=== PATIENT | male | born 2000 | race African-American/Black ===

== ENCOUNTER 2024-01-16 20:53 | Emergency (ER) | payer OTHER, SELFPAY ==
[2024-01-16] MEDS ORDERED: Ketorolac Tromethamine 30 MG (1 mL) VIAL ONE (23:11)
[2024-01-16] MEDS ORDERED: Methocarbamol 500 MG TAB PO SCH (23:30)
== END 2024-01-16 23:39 | disposition home or self-care (01) ==
LOC: CSHERS 20:53
DX: S16.1XXA Strain of muscle, fascia and tendon at neck level, initial encounter (principal); M70.99 Unspecified soft tissue disorder related to use, overuse and pressure multiple sites; F17.210 Nicotine dependence, cigarettes, uncomplicated; X50.3XXA Overexertion from repetitive movements, initial encounter; Y93.B9 Activity, other involving muscle strengthening exercises
CPT/HCPCS: 96372; 99283; J1885